=== PATIENT | female | born 1935 | race Caucasian/White ===

== ENCOUNTER 2016-08-09 22:24 | Emergency (ER) | payer OTHER ==
[2016-08-09 22:33] VITALS: TEMP 98.2
[2016-08-09 23:17] VITALS: PULSE 78; RESP 20
--- NOTE | 2016-08-09 23:22 | EDPHY ---
H & P Stated Complaint: HIGH BLOOD PRESSURE , TOOK LISINOPRIL 3 TIMES Time Seen by Provider: 08/09/16 22:41 HPI/ROS: Chief Complaint: Hypertension HPI: 80-year-old woman with a history of hypertension visiting from out of town. She checked her blood pressure tonight because she felt flushed with a mild headache. Her blood pressure was 161/98. She continued to recheck it was again 170 then eventually note 189/108. She has a plan for her physician for labile blood pressure. She 1st took 5 mg of lisinopril. Then took 10 mg of lisinopril. He will she also took some hydrochlorothiazide. All these medications were taken over the course of about 4-5 hours. When her blood pressure was not coming down she became concerned and presented for further evaluation. She did have an episode of blood pressure high last night of 191/ 103 but that came down after medications. Denies any chest pain or shortness of breath. Has only mild headache which is since resolved. Does have a history of a TIA in the past for which she takes Plavix. Denies any recent illness. She is visiting from out of town visiting her daughter who is ill. Denies any other recent illness. Is planning to go back home tomorrow. ROS: 10 point Review of Systems is negative except as noted in the HPI. PMH: Hypertension, cataracts, glaucoma Medications: Lisinopril, diltiazem, Plavix, hydrochlorothiazide Allergies: Penicillin, sulfa Social History: No smoking, no alcohol, no recreational drug use Family History: non-contributory Physical Exam: Gen: Awake, Alert, No Distress HEENT: Nose: no rhinorrhea Eyes: PERRLA, EOMI Mouth: Moist mucosa Neck: Supple, no JVD Chest: nontender, lungs clear to auscultation Heart: S1, S2 normal, no murmur Abd: Soft, non-tender, no guarding Back: no CVA tenderness, no midline tenderness Ext: no edema, non-tender Skin: no rash Neuro: CN II-XII intact, Sensation grossly intact, Strength 5/5 in bilateral upper and lower extremities - Personal History Current Tetanus/Diphtheria Vaccine: Yes Current Tetanus Diphtheria and Acellular Pertussis (TDAP): Yes - Medical/Surgical History Hx Asthma: No Hx Chronic Respiratory Disease: No Hx Diabetes: No Hx Cardiac Disease: No Hx Renal Disease: No Hx Cirrhosis: No Hx Alcoholism: No Hx HIV/AIDS: No Hx Splenectomy or Spleen Trauma: No Other PMH: Labile BP, anxiety - Social History Smoking Status: Never smoked Constitutional: Initial Vital Signs Temperature (C) 36.8 C 08/09/16 22:29 Heart Rate 83 08/09/16 22:29 Respiratory Rate 18 08/09/16 22:29 Blood Pressure 172/122 H 08/09/16 22:29 O2 Sat (%) 93 08/09/16 22:29 O2 Delivery Mode Room Air Allergies/Adverse Reactions: Penicillins Allergy (Verified 08/09/16 22:33) Sulfa (Sulfonamide Antibiotics) Allergy (Verified 08/09/16 22:33) insect bites Allergy (Uncoded 08/09/16 22:33) Home Medications: Medication Instructions Recorded Ascorbic Acid [Vitamin C 500 mg 250 mg PO BID 01/16/14 (*)] Clopidogrel Bisulfate [Plavix (*)] 75 mg PO HS 01/16/14 Diltiazem HCl [Diltiazem 24Hr ER] 120 mg PO HS 01/16/14 Herbals/Supplements -Info Only 1 ea PO DAILY 01/16/14 Lisinopril [Zestril 10 mg (*)] 5 mg PO DAILY PRN 01/16/14 Lisinopril [Zestril 10 mg (*)] 10 mg PO HS 01/16/14 Multivitamins [Multivitamin (*)] 0.5 each PO BIDMEAL 01/16/14 Pravastatin Sodium [Pravachol] 80 mg PO HS 01/16/14 Timolol 0.25% [TIMOPTIC 0.25% (*)] 1 drops EACHEYE BID 01/16/14 Loperamide HCl [Imodium 2 mg (*)] 2 mg PO QID PRN #0 cap 01/17/14 Medical Decision Making ED Course/Re-evaluation: 80-year-old woman with a normal exam completely intact with an episode of hypertension tonight. She did take additional medications from her usual. Blood pressure now is 160/91. She is symptom-free. There is no findings suggestive of end-organ damage. I have cautioned her that her blood pressure is likely to go lower overnight because the medications that she took. She is not going to get up and walk to the bathroom without assistance. She is staying with her daughter at this time. She should return for any concerns. She will follow up with her physician when she returns back home. I have reassured her that there is no evidence of any acute sequela from her high blood pressure. Departure - Departure Disposition: Home, Routine, Self-Care Clinical Impression: Hypertension Condition: Good Instructions: Hypertension (ED) Additional Instructions: Be careful overnight as your blood pressure might drop. If your feeling lightheaded do not get up or try to walk without assistance. Return emergency department for any fainting or increasing weakness. Resume your normal medications tomorrow. Follow up with primary care physician in 2-3 days for re-evaluation. Return to the emergency depart for any concerns. Referrals: STANISLAW ALAS [Other] - As per Instructions
[2016-08-09 23:38] VITALS: BP 132/91; O2SAT 94
== END 2016-08-09 23:38 | disposition home or self-care (01) ==
DX: I10 Essential (primary) hypertension (principal)